=== PATIENT | female | born 1970 | race Caucasian/White ===

== ENCOUNTER → 2017-05-10 | Outpatient (CLI) | payer OTHER ==
[~2017-05-10] VITALS: Ht 167.6 cm; Wt 87.5 kg
[~2017-05-10] MED LIST: AMLO5TAB2 PO; DEXI60CA2 PO; HYDR12CA PO; LIDOCAINE 2% INJ 100 MG/5 ML SDV (FOR ANES.) As Ordered ONE; NS 1,000 ML IV ONE; PROPOFOL 500 MG/50 ML VIAL As Ordered ONE
--- NOTE | 2017-05-10 11:45 | ROOR ---
Patient Name: Helena Posadas Procedure Date: 05/10/2017 11:24 AM Date of : 1970 Age: 46 Room: [facility] Gender: Female Note Status: Finalized Procedure: Upper GI endoscopy Indications: Heartburn, Failure to respond to medical treatment, Preoperative assessment Providers: Brett DELGADO MD Referring MD: CANDIDO REY MD Requesting Provider: Medicines: Monitored Anesthesia Care Complications: No immediate complications. Procedure: Pre-Anesthesia Assessment: - The heart rate, respiratory rate, oxygen saturations, blood pressure, adequacy of pulmonary ventilation, and response to care were monitored throughout the procedure. The Endoscope was introduced through the mouth, and advanced to the second part of duodenum. The upper GI endoscopy was accomplished without difficulty. The patient tolerated the procedure well. Findings: The examined esophagus was normal. A medium-sized hiatal hernia was present. The entire examined stomach was normal. The examined duodenum was normal. The Z-line was regular and was found 35 cm from the incisors. The RAHMAN capsule with delivery system was introduced through the mouth and advanced into the esophagus, such that the RAHMAN pH capsule was positioned 30 cm from the incisors, which was 5 cm proximal to the GE junction. The RAHMAN pH capsule was then deployed and attached to the esophageal mucosa. The delivery system was then withdrawn. Endoscopy was utilized for probe placement and diagnostic evaluation. The scope was reinserted to evaluate placement of the RAHMAN capsule. Visualization showed the RAHMAN capsule to be in an appropriate position. Impression: - Normal esophagus. - Medium-sized hiatal hernia. - Normal stomach. - Normal examined duodenum. - Z-line regular, 35 cm from the incisors. - The RAHMAN pH capsule was deployed. - No specimens collected. Recommendation: - Instructions: Avoid all reflux medications for next 48 hrs. (i.e. Avoid all the following for the next 48 hours: Prilosec/Omeprazole, Nexium, Prevacid/Lansoprazole, Dexilant, Zegerid/Omeprazole, Aciphex/Rabeprazole, Protonix/Pantoprazole, Zantac/Ranitidine, Pepcid/Famotidine, Tagamet). You may take tums, rolaids or maalox for severe symptoms, but try to limit this as well. Do not try to avoid your usual triggers for your symptoms for next 48 hrs. (If you have known "triggers" for your symptoms such as caffeine, fatty foods, laying down after meals etc, it is actually encouraged that you do try to produce your symptoms as much as possible over next 48 hrs.) - Telephone endoscopist for study results in 2 weeks. Brett Delgado MD Brett DELGADO MD 05/10/2017 11:44:55 AM This report has been signed electronically. Number of Addenda: 0 Note Initiated On: 05/10/2017 11:24 AM Estimated Blood Loss: Estimated blood loss: none.
[2017-05-10 12:00] VITALS: BP 119/80
== END | disposition home or self-care (01) ==
LOC: M OPP 09:54
PROVIDERS: ATTEND Internal Medicine Gastroenterology
DX: R12 Heartburn (principal); K44.9 Diaphragmatic hernia without obstruction or gangrene; K21.9 Gastro-esophageal reflux disease without esophagitis; J04.0 Acute laryngitis; I10 Essential (primary) hypertension; M19.90 Unspecified osteoarthritis, unspecified site; Z87.891 Personal history of nicotine dependence; Z79.899 Other long term (current) drug therapy; Z80.0 Family history of malignant neoplasm of digestive organs

== ENCOUNTER → 2018-05-09 | Outpatient (CLI) | payer OTHER | LOC: M WUC 15:09 | DX: M25.562 Pain in left knee (principal) | CPT/HCPCS: 84443 ==

== ENCOUNTER → 2018-05-09 | Outpatient (REF) | payer OTHER ==
[2018-05-09 16:05] LABS: HEMATOCRIT 43.3 % (36.0-47.0); HEMOGLOBIN 14.4 g/dl (12.0-15.5); MEAN CORPUSCULAR HEMOGLOBIN 31.7 pg (27.0-33.0); MEAN CORPUSCULAR HGB CONC 33.3 g/dl (32.0-36.5); MEAN CORPUSCULAR VOLUME 95.4 fl (80.0-96.0); PLATELET COUNT, AUTOMATED 333 10^3/uL (150-450); RED BLOOD COUNT 4.54 10^6/uL (4.00-5.40); RED CELL DISTRIBUTION WIDTH 12.3 % (11.5-14.5); WHITE BLOOD COUNT 7.9 10^3/uL (4.0-10.0)
[2018-05-09 16:23] LABS: ALBUMIN 3.6 GM/DL (3.2-5.2); ALKALINE PHOSPHATASE 80 U/L (45-117); ALT/SGPT 27 U/L (12-78); ANION GAP 5 MEQ/L (8-16); AST/SGOT 19 U/L (7-37); BILIRUBIN,TOTAL 0.4 MG/DL (0.2-1.0); BLOOD UREA NITROGEN 14 MG/DL (7-18); CALCIUM LEVEL 8.8 MG/DL (8.5-10.1); CARBON DIOXIDE LEVEL 31 MEQ/L (21-32); CHLORIDE LEVEL 108 MEQ/L (98-107); CREATININE FOR GFR 0.87 MG/DL (0.55-1.30); FREE T4 1.23 NG/DL (0.76-1.46); GLOMERULAR FILTRATION RATE > 60.0 (>58); GLUCOSE, FASTING 90 MG/DL (70-100); POTASSIUM SERUM 4.1 MEQ/L (3.5-5.1); SODIUM LEVEL 144 MEQ/L (136-145); TOTAL PROTEIN 6.6 GM/DL (6.4-8.2)
[2018-05-09 16:40] LABS: ERYTHROCYTE SEDIMENTATION RATE 6 mm/hr (0-20)
== END ==
LOC: M SFHCPLAZ 14:17
DX: I10 Essential (primary) hypertension (principal); M25.562 Pain in left knee; E66.9 Obesity, unspecified

== ENCOUNTER → 2018-06-08 | Outpatient (CLI) | payer OTHER | LOC: M RAD 07:12 | DX: R10.11 Right upper quadrant pain (principal) | CPT/HCPCS: J2805 ==

== ENCOUNTER 2018-08-22 11:59 | Day surgery (SDC) | payer OTHER ==
[~2018-08-22 11:59] MED LIST changes: -AMLO5TAB2 PO; -DEXI60CA2 PO; -HYDR12CA PO; -LIDOCAINE 2% INJ 100 MG/5 ML SDV (FOR ANES.) As Ordered ONE; +NS 1,000 ML IV; -NS 1,000 ML IV ONE; -PROPOFOL 500 MG/50 ML VIAL As Ordered ONE
[2018-08-22] MEDS ORDERED: PROPOFOL 200 MG/20 ML VIAL As Ordered (13:00)
[2018-08-22] MEDS ORDERED: fentaNYL 100 MCG/2 ML INJECTION (J3010) As Ordered (13:00)
[2018-08-22] MEDS ORDERED: LIDOCAINE 2% INJ 100 MG/5 ML SDV (FOR ANES.) As Ordered (13:00)
== END 2018-08-22 13:54 | disposition home or self-care (01) ==
LOC: M OPP 11:59
DX: Z12.11 Encounter for screening for malignant neoplasm of colon (principal); Q43.8 Other specified congenital malformations of intestine; K64.8 Other hemorrhoids; R10.11 Right upper quadrant pain; I10 Essential (primary) hypertension; M16.12 Unilateral primary osteoarthritis, left hip; M17.12 Unilateral primary osteoarthritis, left knee; Z79.899 Other long term (current) drug therapy; Z87.19 Personal history of other diseases of the digestive system; Z90.49 Acquired absence of other specified parts of digestive tract; Z98.890 Other specified postprocedural states; Z80.0 Family history of malignant neoplasm of digestive organs
CPT/HCPCS: G0121

== ENCOUNTER → 2018-08-28 | Outpatient (CLI) | payer OTHER ==
[2018-08-28 10:39] LABS: HEMOGLOBIN 14.6 g/dl (12.0-15.5); MEAN CORPUSCULAR HEMOGLOBIN 31.3 pg (27.0-33.0); MEAN CORPUSCULAR VOLUME 92.1 fl (80.0-96.0); PLATELET COUNT, AUTOMATED 300 10^3/uL (150-450); RED BLOOD COUNT 4.67 10^6/uL (4.00-5.40); RED CELL DISTRIBUTION WIDTH 12.5 % (11.5-14.5)
[2018-08-28 10:56] LABS: ERYTHROCYTE SEDIMENTATION RATE 5 mm/hr (0-20)
[2018-08-28 11:27] LABS: ALBUMIN 3.4 GM/DL (3.2-5.2); ALBUMIN/GLOBULIN RATIO 1.21 (1.00-1.93); ALKALINE PHOSPHATASE 84 U/L (45-117); ALT/SGPT 22 U/L (12-78); ANION GAP 8 MEQ/L (8-16); AST/SGOT 17 U/L (7-37); BILIRUBIN,TOTAL 0.6 MG/DL (0.2-1.0); BLOOD UREA NITROGEN 11 MG/DL (7-18); CALCIUM LEVEL 8.4 MG/DL (8.5-10.1); CARBON DIOXIDE LEVEL 27 MEQ/L (21-32); CHLORIDE LEVEL 110 MEQ/L (98-107); CREATININE FOR GFR 0.92 MG/DL (0.55-1.30); FREE T4 1.14 NG/DL (0.76-1.46); GLOMERULAR FILTRATION RATE > 60.0 (>58); GLUCOSE, FASTING 93 MG/DL (70-100); POTASSIUM SERUM 4.6 MEQ/L (3.5-5.1); SODIUM LEVEL 145 MEQ/L (136-145); TOTAL PROTEIN 6.2 GM/DL (6.4-8.2)
== END ==
LOC: M LAB 09:26
DX: M25.562 Pain in left knee (principal)
CPT/HCPCS: 84443

== ENCOUNTER → 2018-09-19 | Outpatient (REF) | payer OTHER ==
[2018-09-19 13:04] LABS: ANION GAP 10 MEQ/L (8-16); BLOOD UREA NITROGEN 13 MG/DL (7-18); CALCIUM LEVEL 8.1 MG/DL (8.5-10.1); CARBON DIOXIDE LEVEL 27 MEQ/L (21-32); CHLORIDE LEVEL 106 MEQ/L (98-107); CREATININE FOR GFR 0.88 MG/DL (0.55-1.30); GLOMERULAR FILTRATION RATE > 60.0 (>58); GLUCOSE, FASTING 105 MG/DL (70-100); POTASSIUM SERUM 4.4 MEQ/L (3.5-5.1); SODIUM LEVEL 143 MEQ/L (136-145)
== END ==
LOC: M SFHCPLAZ 10:45
DX: R60.0 Localized edema (principal)

== ENCOUNTER → 2018-10-20 | Outpatient (REF) | payer OTHER ==
[~2018-10-20] MED LIST changes: +AMLO5TAB6 PO; +DEXI60CA2 PO; +HYDR12CA PO; +LOSA100T50 PO; -NS 1,000 ML IV
[2018-10-20 13:08] LABS: BLOOD UREA NITROGEN 14 MG/DL (7-18); CALCIUM LEVEL 8.9 MG/DL (8.5-10.1); CARBON DIOXIDE LEVEL 29 MEQ/L (21-32); CHLORIDE LEVEL 106 MEQ/L (98-107); CREATININE FOR GFR 0.98 MG/DL (0.55-1.30); GLOMERULAR FILTRATION RATE > 60.0 (>58); GLUCOSE, FASTING 97 MG/DL (70-100); SODIUM LEVEL 144 MEQ/L (136-145)
== END ==
LOC: M LABDRAW1 12:08
PROVIDERS: ATTEND Nurse Practitioner Family
DX: R60.0 Localized edema (principal)